=== PATIENT | female | born 1965 | race Caucasian/White ===

== ENCOUNTER → 2023-05-20 07:57 | Outpatient (REF) | payer OTHER, SELFPAY | LOC: RAD 07:57 | PROVIDERS: ATTENDING PHYSICIAN Nurse Practitioner Family; FAMILY PHYSICIAN Family Medicine | DX: K57.90 Diverticulosis of intestine, part unspecified, without perforation or abscess without bleeding (principal) | CPT/HCPCS: 74177; Q9967 ==

== ENCOUNTER → 2023-07-08 15:45 | Outpatient (REF) | payer OTHER, SELFPAY | LOC: RAD 15:45 | PROVIDERS: ATTENDING PHYSICIAN Obstetrics & Gynecology Gynecology; FAMILY PHYSICIAN Nurse Practitioner Family; REFERRING PHYSICIAN Family Medicine | DX: N83.209 Unspecified ovarian cyst, unspecified side (principal); K82.4 Cholesterolosis of gallbladder | CPT/HCPCS: 76700; 76830; 76856 ==

== ENCOUNTER → 2023-08-13 15:19 | Outpatient (REF) | payer OTHER, SELFPAY | LOC: WDC 15:19 | PROVIDERS: ATTENDING PHYSICIAN Obstetrics & Gynecology Gynecology; FAMILY PHYSICIAN Family Medicine | DX: Z12.31 Encounter for screening mammogram for malignant neoplasm of breast (principal) | CPT/HCPCS: 77063; 77067 ==

== ENCOUNTER → 2023-09-20 06:26 | Day surgery (SDC) | payer OTHER, SELFPAY | LOC: GI 06:26 | PROVIDERS: ATTENDING PHYSICIAN Internal Medicine Gastroenterology | DX: Z12.11 Encounter for screening for malignant neoplasm of colon (principal); K57.30 Diverticulosis of large intestine without perforation or abscess without bleeding; K64.8 Other hemorrhoids; K22.89 Other specified disease of esophagus; K21.9 Gastro-esophageal reflux disease without esophagitis; Z83.719 Family history of colon polyps, unspecified; Z87.19 Personal history of other diseases of the digestive system | CPT/HCPCS: 45380; 43239; 88305; 88342 ==

== ENCOUNTER → 2023-11-22 09:05 | Outpatient (REF) | payer OTHER, SELFPAY | LOC: RAD 09:05 | PROVIDERS: ATTENDING PHYSICIAN Obstetrics & Gynecology Gynecology; FAMILY PHYSICIAN Family Medicine | DX: N83.209 Unspecified ovarian cyst, unspecified side (principal) | CPT/HCPCS: 76830; 76856 ==

== ENCOUNTER → 2023-11-26 18:18 | Outpatient (REF) | payer OTHER, SELFPAY | LOC: MRI 3T 18:18 | PROVIDERS: ATTENDING PHYSICIAN Obstetrics & Gynecology Gynecology; FAMILY PHYSICIAN Family Medicine | DX: N94.9 Unspecified condition associated with female genital organs and menstrual cycle (principal) | CPT/HCPCS: 72197; A9575 ==

== ENCOUNTER → 2023-12-10 10:34 | Outpatient (REF) | payer OTHER, SELFPAY | LOC: HWRAD 10:34 | PROVIDERS: ATTENDING PHYSICIAN Obstetrics & Gynecology Gynecologic Oncology; FAMILY PHYSICIAN Family Medicine; REFERRING PHYSICIAN Obstetrics & Gynecology Gynecology | DX: D39.11 Neoplasm of uncertain behavior of right ovary (principal) | CPT/HCPCS: 71260; 74177; Q9967 ==

== ENCOUNTER 2023-12-13 06:37 | Day surgery (SDC) | payer OTHER, SELFPAY ==
[2023-12-10 13:42] VITALS: BMI 29.0
[2023-12-13] VITALS (14 sets, daily range): BP systolic 109–142; BP diastolic 63–95; BMI 29.0
[2023-12-13] MEDS: NEURONTIN 300 MG PO (07:03)
[2023-12-13] MEDS: TYLENOL 1000 MG PO (07:04)
[2023-12-13] MEDS: HEPARIN 5000 UNITS SC (07:08)
--- NOTE | 2023-12-13 07:25 | PTCARENOTE ---
Due to IVF shortage IV cap only put into patients arm.
[2023-12-13] MEDS: MOBIC 15 MG PO (07:28)
--- NOTE | 2023-12-13 10:10 | OR.RPT ---
Operative Report
Operative Report
Date of procedure: December 13, 2023
Preoperative diagnosis right sided pelvic mass
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
Procedure: Robotic assisted total laparoscopic hysterectomy, bilateral salpingo-oophorectomy, infracolic omentectomy, pelvic washings, appendectomy, multiple peritoneal biopsies
Surgeon:Hunter Wallace MD
Assist: Gus Lovell PA-C
Anesthesia: General Endotracheal intubation
Estimated blood loss: 100 cc
Complication: None
Findings: Upper abdomen including liver stomach bilateral diaphragms omentum spleen are normal, right ovary has a partially collapsed cystic mass with smooth capsule, there is no evidence of peritoneal nodularity, there is prior inflammation of
sigmoid colon with adhesions to left ovary and left pelvic peritoneum appendix has a mass on its tip with adhesions to ileocecal mesentery.. Frozen section reveals benign mucinous neoplasm, several small nodules are seen within the cyst however on
frozen section preliminary results are consistent with benign tumor pending final evaluation. At the completion of the procedure all foci of visible Tatiana have been removed
Procedure in detail: This patient is brought to the operating room and placed in supine position general anesthesia was administered she was intubated without any difficulty. She was placed in lithotomy position, appropriate IV lines were placed.
Her arms were covered with foam and head and neck and shoulder and joints were properly padded. She was prepped on the abdomen perineum and vagina Hansen catheter was inserted under sterile condition. The patient was draped. Timeout procedure was
carried out she received Ancef and Flagyl prophylactically. I went ahead and placed the uterine manipulator stitch bonding machine operator type with 3.0 CAITLYN ring around the cervix and the uterine cavity which sounded to 7 cm. Vaginal cuff occluder was insufflated.
We turned our attention abdominally, Veress needle was inserted just below the left subcostal margin and insufflation with CO2 gas was performed up to pressure of 15 mmHg. 8 mm X Xi robotic trocar was introduced 25 cm cephalad to symphysis pubis
into the peritoneal cavity, under direct visualization additional 8 mm robotic ports were introduced in left upper quadrant and left lateral abdomen and right upper quadrant and a 12 mm air seal port was placed in the right lower quadrant. We
inspected the upper abdomen and performed pelvic washings and collected and submitted to pathology. Patient was placed in 30 degree Trendelenburg, robotic system was docked. Right and left round ligaments were sealed and divided anterior and
posterior leaves of the broad ligament were dissected open. Retroperitoneal spaces were opened, both infundibulopelvic ligaments were isolated and from the ureter. IP ligaments were sealed 3 times and divided left tube and ovary was left
attached to the uterus. The right tube and ovary was detached from the uterus and placed in an endoscopic bag for retrieval. Bladder flap was sharply developed and advanced below the cervicovaginal junction. Uterine arteries followed by cardinal
ligaments followed by uterosacral ligaments were serially sealed and divided. Circumferential incision was made around the CAITLYN ring until the uterus was completely detached and specimens including uterus cervix left tube and ovary followed by a bag
containing right tube and ovary was removed through the vagina. I inspected the cyst myself by cutting it open and realized there was some concern about nodularity within it and I was concerned about possibility of a borderline malignancy. Frozen
section was sent. Peritoneal biopsies were obtained from right and left paracolic gutter as well as right and left pelvis as well as anterior and posterior cul-de-sac. Please note that the peritoneum involving left pelvis was densely adherent to
sigmoid colon suggestive of prior inflammatory process. Omentum was brought into view and infracolic omentectomy was performed I used a vessel sealer to seal and divide across vascular pedicles of omentum and when it was completely released there
was submitted and brought out of the abdomen through the vagina. I also inspected the appendix which had a thickened tip and was also attached to the ileocecum mesentery, the appendix was mobilized. The mesoappendix was sealed and divided using
vessel sealer. TOSHIA 45�2.5 stapler was fired across the base of the appendix and the cecum and appendix was also brought through the vagina and submitted to pathology. Vaginal cuff was closed with 0 Vicryl suture ligature in a [id number]
fashion incorporating uterosacral ligaments for support. V-Loc suture was used to close the vagina in a bidirectional fashion. We irrigated all operative sites and excellent hemostasis was present. As the frozen section did not reveal evidence of
malignancy I did not perform any lymph node dissection. We proceeded to close the 12 mm air seal port site with 0 Vicryl suture using a Ty Peralta system. All skin incisions were closed with 4-0 Monocryl in a subcuticular fashion. Vagina was
inspected and there was no evidence of lacerations or bleeding. Hansen catheter was removed at the completion of the procedure. Patient was awakened extubated and returned back to recovery room stable awake and extubated condition. Counts of laps
instruments and needle was correct x 2. I was present and scrubbed for entire procedure as dictated above.
Disposition: To PACU, awake alert stable extubated
[2023-12-13] MEDS: ZOFRAN 4 MG IV (10:24)
[2023-12-13] MEDS: DILAUDID 0.25 MG IV ×2 (10:28→10:59)
--- NOTE | 2023-12-13 12:16 | SUR.PHASEI ---
"patient post op in pacu, emotional and 'emotionally exhausted'. medicated for nausea with relief and pain controlled with lower doses of dilaudid - patient very sleepy - used lower doses. vss, repositioned frequently with minimal assistance. Dr Rodrigo (~) at bedside - visit - patient sleeps."
== END 2023-12-13 13:53 | disposition home or self-care (01) ==
LOC: SDS 06:37
PROVIDERS: ATTENDING PHYSICIAN Obstetrics & Gynecology Gynecologic Oncology; FAMILY PHYSICIAN Family Medicine; OTHER PHYSICIAN Obstetrics & Gynecology Gynecology
DX: D27.0 Benign neoplasm of right ovary (principal); N72 Inflammatory disease of cervix uteri; N73.9 Female pelvic inflammatory disease, unspecified
CPT/HCPCS: 58571; 88304; 88305; 88307; 88332; 36415; 86850; 86900; 86901; 88112; 88331; 88341; 88342

== ENCOUNTER 2024-01-15 15:40 | Emergency (ER) | payer OTHER, SELFPAY ==
[2024-01-15 15:45] VITALS: BP 165/108
[2024-01-15 21:03] VITALS: BP 128/88
--- NOTE | 2024-01-15 23:30 | ED.GENMED ---
History of Present Illness
General
Chief Complaint: DVT/Possible Blood Clot
Source: patient
Exam Limitations: none
Time Seen by Provider: 01/15/24 17:08
Nursing documentation reviewed up to this point in time: agreed with
History of Present Illness
History of Present Illness:
Patient to ED with complaint of intermittent muscle tightness involving BLE. Symptoms come on without warning. NO aggravating or alleviating factors. No prior history o same. She is concerned for DVT. S/p rn gynecology surgery x 3 weeks. No history of
DVT. Brought to ED by spouse for eval.
Past History
Past History
ED Past Medical History: None
ED Past Surgical History: None
Social History
Tobacco: Non-smoker
Alcohol: None
Review of Systems
Review of Systems
Allergies reviewed?: Yes
All Other Systems: ROS reviewed and negative except as documented in HPI and ROS
Constitutional: Reports no symptoms
EENT: Reports no symptoms
Respiratory: Reports no symptoms
Cardiac: Reports no symptoms
ABD/GI: Reports no symptoms
Musculoskeletal: Reports muscle pain (spontaneous, intermittent)
Skin: Reports no symptoms
Neurological: Reports no symptoms
Psychiatric: Reports no symptoms
Phy Exam
General Physical Exam
General Presentation: well appearing and no apparent distress
General age: appears stated age
General Skin: warm and dry
General Habitus: normal
General Mental: alert
Musculoskeletal Exam
Musculoskeletal Exam: full ROM, no edema and neuro vasc intact
Skin Exam
Skin Exam: normal color, warm/dry and no rash
Psychiatric Exam
Psychiatric Exam: normal mood/affect
Course
Orders/Labs/Results
Orders:
Orders
01/15/24 15:54
US Periph Venous LOWER Ext Wolf Urgent
Comment:
Reason For Exam: pain
Vital Signs
Initial and Last Documented VS:
Initial Vital Signs
Temp Pulse Resp BP Pulse Ox
97.8 F 90 18 165/108 98
01/15/24 15:45 01/15/24 15:45 01/15/24 15:45 01/15/24 15:45 01/15/24 15:45
Last Documented Vital Signs
Temp Pulse Resp BP Pulse Ox
97.8 F 79 18 128/88 96
01/15/24 15:45 01/15/24 21:03 01/15/24 21:03 01/15/24 21:03 01/15/24 21:03
*Radiology
Radiology exam reviewed: radiology read reviewed
*Critical Care Note
Total Time (30-74mins, 75-104mins- exclusive of procedures): Not Applicable
ED Attending Note
-
Portions of this chart may have been created with voice recognition software.� Occasional wrong word or��sound alike� substitutions may have occurred due to the inherent limitations of voice recognition software.
Discharge Plan
Departure
Patient Disposition: Home (Routine Discharge)
Date of Disposition: 01/15/24
Time of Disposition: 20:49
Patient with high blood pressure during this ER visit?: No
Condition: Good
Covid-19: Not Applicable
Discharge Problem:
Muscle cramping
Instructions: Nocturnal (nighttime) leg cramps, Muscle Spasm ED
Prescriptions:
No Action
omeprazole 20 mg Capsule,Delayed Release(Dr/Ec)
20 mg PO DAILY
alprazolam 0.5 mg Tablet
0.25 - 0.5 mg PO PRN PRN (Reason: anxiety)
Patient Comments:
Patient has not taken in over 4 YEARS
Referrals:
Esther Uriostegui, [Family Provider] - Follow up in 2-3 days
Interventions
Interventions:
*Risk Screen - Suicide Last Done: 01/15/24 15:45
*General Assessment Last Done: 01/15/24 15:45
*Neglect/Abuse Screening Last Done: 01/15/24 15:45
ED- Fall Risk Assessment Last Done: 01/15/24 21:03
*ED COVID-19 Vaccine History Last Done: 01/15/24 21:03
*Nursing Disposition Last Done: 01/15/24 21:03
ED- Cardiac Assessment Last Done: 01/15/24 17:13
ED- Pulmonary Assessment Last Done: 01/15/24 17:13
ED-Peripheral Vascular Assessment Last Done: 01/15/24 17:13
ED-Skin Assessment Last Done: 01/15/24 17:13
Discharge Date and Time
Discharge Date/Time: 01/15/24 21:04
Print Language: INDONESIAN
== END 2024-01-15 21:04 | disposition home or self-care (01) ==
LOC: EMR 15:40
PROVIDERS: EMERGENCY PHYSICIAN Emergency Medicine; FAMILY PHYSICIAN Family Medicine
DX: R25.2 Cramp and spasm (principal)
CPT/HCPCS: 99284; 93970

== ENCOUNTER → 2024-05-17 11:13 | Outpatient (REF) | payer OTHER, SELFPAY | LOC: HWRAD 11:13 | PROVIDERS: ATTENDING PHYSICIAN Family Medicine; REFERRING PHYSICIAN Physician Assistant | DX: R10.11 Right upper quadrant pain (principal); K21.9 Gastro-esophageal reflux disease without esophagitis | CPT/HCPCS: 76700 ==

== ENCOUNTER → 2024-07-25 06:55 | Outpatient (REF) | payer OTHER, SELFPAY | LOC: RAD 06:55 | PROVIDERS: ATTENDING PHYSICIAN Physician Assistant; FAMILY PHYSICIAN Family Medicine | DX: E05.90 Thyrotoxicosis, unspecified without thyrotoxic crisis or storm (principal) | CPT/HCPCS: 76536 ==

== ENCOUNTER → 2024-08-16 17:46 | Outpatient (REF) | payer OTHER, SELFPAY | LOC: MRI 17:46 | PROVIDERS: ATTENDING PHYSICIAN Internal Medicine Gastroenterology; FAMILY PHYSICIAN Family Medicine | DX: K82.4 Cholesterolosis of gallbladder (principal); R10.11 Right upper quadrant pain | CPT/HCPCS: 74183; A9575 ==